=== PATIENT | female | born 1980 | race Caucasian/White ===

== ENCOUNTER 2016-11-01 17:33 | Emergency (ER) | payer OTHER ==
[2016-11-01] MEDS ORDERED: SODIUM CHLORIDE 0.9% 1,000 ML ONE ×2 (18:19→19:30)
[2016-11-01] MEDS ORDERED: ACETAMINOPHEN 500 MG TABLET ONE (18:19)
[2016-11-01 18:31] LABS: ABSOLUTE NEUTROPHIL COUNT 2.6 K/mm3 (1.8-7.7); BASO % 0.3 % (0.2-1.0); HEMATOCRIT 33.1 % (37.0-47.0); IMM NEUT% 0.3 % (0-1); LYMPH # 0.4 (1.0-4.8); LYMPH % 10.4 % (15-45); MEAN CELL VOLUME 91.9 fl (81.0-99.0); MEAN CORPUSCULAR HEMOGLOBIN 30.6 pg (27.0-31.0); MEAN CORPUSCULAR HGB CONC 33.2 g/dl (33.0-37.0); MONO # 0.4 (0.0-0.8); MONO % 12.8 % (4-12); NEUT % 76.2 % (43-75); PLATELET COUNT 128 K/mm3 (130-400); RED CELL DISTRIBUTION WIDTH 12.3 % (11.5-14.5)
[2016-11-01 18:45] LABS: ALB/GLOB RATIO 1.7 (>1.0); ALBUMIN 3.8 gm/dL (3.5-5.7); CALCIUM 8.8 mg/dL (8.6-10.3)
[2016-11-01 18:46] LABS: SPECIFIC GRAVITY 1.015 (1.001-1.030); URINE APPEARANCE CLEAR; URINE BILIRUBIN NEGATIVE (NEGATIVE); URINE BLOOD NEGATIVE (NEGATIVE); URINE COLOR YELLOW; URINE GLUCOSE (UA) NEGATIVE (NEGATIVE); URINE LEUKOCYTE ESTERASE NEGATIVE (NEGATIVE); URINE NITRITE NEGATIVE (NEGATIVE); URINE PROTEIN NEGATIVE (NEGATIVE); URINE UROBILINOGEN NEGATIVE (0-1 mg/dl)
[2016-11-01] MEDS ORDERED: IBUPROFEN 600 MG TABLET ONE (20:33)
== END 2016-11-01 21:14 | disposition home or self-care (01) ==
LOC: ED 17:33
DX: B34.9 Viral infection, unspecified (principal); E03.9 Hypothyroidism, unspecified; E05.00 Thyrotoxicosis with diffuse goiter without thyrotoxic crisis or storm; C49.A0 Gastrointestinal stromal tumor, unspecified site; Z85.9 Personal history of malignant neoplasm, unspecified; Z79.899 Other long term (current) drug therapy
CPT/HCPCS: 83605; 85025; 87040; 80053; 81003; 87880; 87804; 99283 ×2; 96360; 96361; A9270 ×2; J7030 ×2